=== PATIENT | female | born 1975 | race Caucasian/White ===

== ENCOUNTER 2022-08-28 17:08 | Emergency (ER) | payer SELFPAY ==
[2022-08-28 17:23] VITALS: BP 113/75; PULSE 86; RESP 18; TEMP 99.1; BMI 29.2
[2022-08-28] MEDS ORDERED: IBUPROFEN 600 MG TABLET (FP) PO ONE ×2 (18:34→18:56)
[2022-08-28] MEDS ORDERED: HYDROCORTISONE 0.5% TOPICAL OINTMENT TUBE TP ONE (19:31)
== END 2022-08-28 19:50 | disposition home or self-care (01) ==
LOC: JERFT 17:08
DX: M25.541 Pain in joints of right hand (principal); M25.542 Pain in joints of left hand; M79.661 Pain in right lower leg; M79.662 Pain in left lower leg
CPT/HCPCS: 99283-25